=== PATIENT | male | born 1995 | race Caucasian/White ===

== ENCOUNTER 2023-09-27 12:54 | Emergency (ER) | payer MEDICAID ==
[~2023-09-27] VITALS: Ht 172.7 cm; Wt 130.8 kg
[2023-09-27 13:10] VITALS: BP 122/84; PULSE 92; RESP 16; TEMP 98.2; O2SAT 97
[2023-09-27] MEDS ORDERED: CLIN300C2 PO (14:22)
[2023-09-27] MEDS ORDERED: PRED20TA5 PO (14:22)
[2023-09-27] MEDS ORDERED: BENZ-256 MM (14:22)
[2023-09-27] MEDS ORDERED: KETOROLAC 30 MG/ML VIAL ONE (14:45)
[2023-09-27] MEDS ORDERED: DEXAMETHASONE 10 MG/ML VIAL ONE (14:45)
[2023-09-27] MEDS ORDERED: CLINDAMYCIN 150 MG CAP ONE (14:45)
[2023-09-27] MEDS: CLINDAMYCIN 150 MG CAP PO ONE (14:49)
[2023-09-27] MEDS: DEXAMETHASONE 10 MG/ML VIAL IM ONE (14:50)
[2023-09-27] MEDS: KETOROLAC 30 MG/ML VIAL IM ONE (14:52)
[2023-09-27 15:14] VITALS: BP 123/82; PULSE 88; RESP 16; TEMP 98.1; O2SAT 98
[2023-09-27 17:01] LABS: FLU A ANTIGEN negative (NEGATIVE); FLU B ANTIGEN NEGATIVE (NEGATIVE)
== END 2023-09-27 15:14 | disposition home or self-care (01) ==
LOC: MED 12:54
DX: J02.0 Streptococcal pharyngitis (principal); Z20.822 Contact with and (suspected) exposure to COVID-19; Z79.2 Long term (current) use of antibiotics; Z79.899 Other long term (current) drug therapy; Z88.0 Allergy status to penicillin
CPT/HCPCS: 87081; 87426; 87804; 96372; 99284; J1100; J1885